=== PATIENT | female | born 1945 | race Caucasian/White ===

== ENCOUNTER 2016-12-19 20:11 | Emergency (ER) | payer OTHER, MEDICARE ==
[2016-12-19 20:41] VITALS: RESP 16
[2016-12-19] MEDS ORDERED: ACETAMINOPHEN 500 MG TAB ONE (21:13)
[2016-12-19] MEDS ORDERED: ACETAMINOPHEN 500 MG TAB PO ONE (21:14)
--- NOTE | 2016-12-19 21:14 | EDPHY ---
H & P Stated Complaint: fall R eye injury Time Seen by Provider: 12/19/16 21:10 HPI/ROS: HPI: 71-year-old female presents to emergency department with chief concern fall, right facial bruising. Had a mechanical fall when she was walking to the barn this evening and 1 of the horses moved a feeding been to a new location. She did not see it, tripped and fell into it impacting the right side of her face. No loss of consciousness. She reports a 6/10 right-sided headache, right facial tenderness. Reports blurry vision in the right eye. Denies dizziness, neck pain, shortness of breath, chest pain, back pain, weakness or numbness of extremities. No other injury at time of incident. Up-to-date with tetanus. Has a history of heart issues for which she sees Dr. Bruce Luna. Incidentally she reports fast heart rate periodically over the past several months. 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 ROS:10 point review of systems is negative other than as stated in HPI Source: Patient - Personal History Current Tetanus/Diphtheria Vaccine: Unsure Current Tetanus Diphtheria and Acellular Pertussis (TDAP): Unsure - Medical/Surgical History Hx Asthma: No Hx Chronic Respiratory Disease: No Hx Diabetes: No Hx Cardiac Disease: Yes Hx Renal Disease: No Hx Cirrhosis: No Hx Alcoholism: No Hx HIV/AIDS: No Hx Splenectomy or Spleen Trauma: No Other PMH: HTN, TIA, cardiac issue - Family History Significant Family History: No pertinent family hx - Social History Smoking Status: Never smoked Alcohol Use: None Drug Use: None Additional Social History: , lives with , cares for her horses on her property - Physical Exam Exam: Vital signs stable, reviewed by me General: Awake, calm, cooperative. No acute distress. Head: Normal a cephalic Face: Right maxillary ecchymosis, swelling, right facial abrasion EENT: PERRLA. EOMI. No papilledema. Right subconjunctival hemorrhage. No hyphema TMs intact, translucent. No evidence of bleeding or otorrhea. Nasal septum midline, nasal mucosa pink. no evidence of drainage. Uvula midline, pharynx without redness. Neck: No midline tenderness, full range of motion Resp: Breathing unlabored. Lungs clear to auscultation bilaterally. CV: HRR. S1S2. No MRG. GI: Abdomen soft, nontender. Bowel sounds normoactive and positive x4 quadrants. : No suprapubic tenderness. No CVA tenderness. Skin: Warm, dry. No rashes noted. Capillary refill less than 2 seconds. Musculoskeletal: Strength equal and 5+ in all 4 extremities. Neuro: No focal neuro deficit. CN II through XII intact. Rapid alternating hand movements intact. Finger to nose intact. Heel to borja intact. Negative Romberg. Negative pronator drift. Gait even and steady. Memory and recall of 3/3 objects at 5 minutes intact. Upper and lower extremity DTRs 2+. Back: No midline thoracic or lumbar tenderness Extremities: Full range of motion. Constitutional: Initial Vital Signs Temperature (C) 36.9 C 12/19/16 20:36 Heart Rate 81 12/19/16 20:36 Respiratory Rate 16 12/19/16 20:36 Blood Pressure 144/104 H 12/19/16 20:36 O2 Sat (%) 95 12/19/16 20:36 O2 Delivery Mode Room Air Allergies/Adverse Reactions: cephalexin monohydrate [From [employer]] Allergy (Verified 12/19/16 20:33) Home Medications: Medication Instructions Recorded Aspirin 81mg 12/24/09 Crestor 12/24/09 Plavix 12/24/09 Zetia 12/24/09 Medical Decision Making - Diagnostics Imaging: CT Brain Without Contrast CT of the Facial Bones 2125 hours History: Blunt trauma to right side of face with abrasions. Rule out intracranial hemorrhage and fracture.. Impression: 1. Moderate atrophy. 2. No hemorrhage, mass effect, or definite acute peripheral infarct. 3. Stable mild to moderate nonspecific hypodensities in the white matter of bilateral cerebral hemispheres. Differential diagnosis includes microvascular ischemic disease, post-infectious/post- inflammatory sequela, atypical demyelinating disease, or migraine-related sequela. Small white matter lacunar infarcts may also have this appearance. 4. Normal CT facial bones. These findings were discussed by telephone with Adelita Daly NP at 2154 hours. Dictated By: Julio C Jenkins MD Procedures: LET gel applied to right cheek abrasion. Abrasion then irrigated by RN. Bacitracin applied. ED Course/Re-evaluation: 71-year-old female on Plavix presents to emergency department with a fall, head injury. Landed on the right side of her face. Has a large right facial hematoma. Maxillofacial CT and head CT ordered. Patient has no focal neuro deficits. EKG shows a sinus rhythm, rate 71, normal intervals, no axis deviation, no evidence of acute ischemia. 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 Deep Q-waves in V2 and V3 Differential Diagnosis: Intracranial bleed, skull fracture, facial fracture, contusion, hematoma, eye injury - Data Points Medications Given: Discontinued Medications Acetaminophen (Tylenol) 1,000 mg PO EDNOW ONE Stop: 12/19/16 21:15 Last Admin: 12/19/16 21:26 Dose: 1,000 mg Departure - Departure Disposition: Home, Routine, Self-Care Clinical Impression: Hematoma, Abrasion, Subconjunctival hemorrhage of right eye Head injury Qualifiers: Encounter type: initial encounter Qualifier Code: (S09.90XA) Unspecified injury of head, initial encounter Facial contusion Qualifiers: Encounter type: initial encounter Qualifier Code: (S00.83XA) Contusion of other part of head, initial encounter Condition: Good Instructions: Head Injury (ED), Facial Contusion (ED), Hematoma (ED) Additional Instructions: Plan: 1000 mg Tylenol every 8 hours ice every 1-2 hours for 20 minutes for the the next 2-3 days Follow up with primary care within the next 1-2 days for recheck without fail-- When you call to schedule appointment, please let the office know you are an " ER follow up" appointment" Please awaken her every 2 hours during the night to check on her Return here for any of the follow Inability to awaken the patient, severe or worsening headaches, somnolence or confusion, restlessness, unsteadiness, or seizures, difficulty with vision, vomiting, fever, or stiff neck, bowel or bladder incontinence, weakness or numbness involving any part of the body. Gentle warm, soapy water to right facial abrasion daily, apply antibiotic ointment Referrals: Hima Begum MD [Primary Care Provider] - As per Instructions
--- NOTE | 2016-12-19 21:27 | CPEKG ---
Heart Rate: 71 RR Interval: 845 P-R Interval: 184 QRSD Interval: 82 QT Interval: 396 QTC Interval: 431 P [place]: 72 QRS [place]: 69 T Wave [place]: 15 EKG Severity - ABNORMAL ECG - EKG Impression: SINUS RHYTHM EKG Impression: ANTERIOR INFARCT, OLD Electronically Signed By: Mike Amaya 19-Dec-2016 23:30:08
--- NOTE | 2016-12-19 21:57 | CT ---
CT Brain Without Contrast CT of the Facial Bones 2125 hours History: Blunt trauma to right side of face with abrasions. Rule out intracranial hemorrhage and f racture.. Technique: Axial computed tomographic images of the brain without contrast. Images were reconstruct ed down to 1.25 mm slice thickness. Dose reduction techniques were utilized. Thin spiral images were obtained through the face from just below the mandible to above the frontal s inuses. The data were reconstructed in the sagittal and coronal plane. I also performed 3D reconstru ctions at the workstation to help the ER physician and surgeon visualize fractures if surgery is cont emplated. Dose reduction techniques were utilized. Comparison the prior MRI brain study from November 25, 2014. Findings: CT Head: Ventricles, cisterns, and sulci are widened consistent with moderate atrophy. No hydrocephal us, masses, midline shift/herniation, or subdural hematomas. No intraparenchymal hemorrhage or mass e ffect. Mild to moderate hypodensities are seen in the white matter of bilateral cerebral hemispheres. There is no acute peripheral cerebral infarct seen. Arteriosclerotic calcifications are noted asso ciated with distal ICA in the parasellar location bilaterally. CT facial bones: The facial bones are intact without evidence of fracture. The paranasal sinuses are clear. There are no air-fluid levels. The orbital globes are normal in contour. Soft tissue swelling is seen over the right orbit. Paranasal sinuses and mastoid air cells are clear. Impression: 1. Moderate atrophy. 2. No hemorrhage, mass effect, or definite acute peripheral infarct. 3. Stable mild to moderate nonspecific hypodensities in the white matter of bilateral cerebral hemisp heres. Differential diagnosis includes microvascular ischemic disease, post-infectious/post-inflammat ory sequela, atypical demyelinating disease, or migraine-related sequela. Small white matter lacunar infarcts may also have this appearance. 4. Normal CT facial bones. These findings were discussed by telephone with Adelita Daly NP at 2154 hours.
[2016-12-19] MEDS ORDERED: TDAP ADULT 0.5 ML INJ (BOOSTRIX) IM ONE (22:11)
[2016-12-19 22:24] VITALS: O2SAT 96
[2016-12-19 22:45] VITALS: BP 136/79; PULSE 78; TEMP 98.2
== END 2016-12-19 22:46 | disposition home or self-care (01) ==
DX: S09.90XA Unspecified injury of head, initial encounter (principal); S00.83XA Contusion of other part of head, initial encounter; S00.81XA Abrasion of other part of head, initial encounter; H11.31 Conjunctival hemorrhage, right eye; I10 Essential (primary) hypertension; W18.39XA Other fall on same level, initial encounter; Y92.71 Barn as the place of occurrence of the external cause; Y99.8 Other external cause status; Y93.01 Activity, walking, marching and hiking

== ENCOUNTER → 2016-12-27 | Outpatient (CLI) | payer OTHER, MEDICARE | LOC: BHCLAF 11:00 | PROVIDERS: ATTEND Internal Medicine Cardiovascular Disease | DX: R07.9 Chest pain, unspecified (principal); I25.10 Atherosclerotic heart disease of native coronary artery without angina pectoris; E78.00 Pure hypercholesterolemia, unspecified | CPT/HCPCS: 93005-PO ==

== ENCOUNTER → 2017-01-04 | Outpatient (CLI) | payer OTHER, MEDICARE | LOC: BHFA 13:15 | PROVIDERS: ATTEND Internal Medicine Cardiovascular Disease | DX: R07.9 Chest pain, unspecified (principal); I25.10 Atherosclerotic heart disease of native coronary artery without angina pectoris ==

== ENCOUNTER → 2017-03-22 | Outpatient (CLI) | payer OTHER, MEDICARE | LOC: FIMAGING 10:16 | DX: Z12.31 Encounter for screening mammogram for malignant neoplasm of breast (principal) | CPT/HCPCS: G0202 ==

== ENCOUNTER 2017-07-11 12:02 | Emergency (ER) | payer OTHER, MEDICARE ==
[2017-07-11 12:12] VITALS: TEMP 97.7
--- NOTE | 2017-07-11 12:16 | EDPHY ---
H & P Stated Complaint: difficulty grasping L arm at 1120 this am, nausea, palpitaions HPI/ROS: CHIEF COMPLAINT: Lightheaded, Chest pain, Weakness HISTORY OF PRESENT ILLNESS: The patient is a 72-year-old female with history of TIA presenting with acute weakness, chest pain, and lightheadedness that started suddenly at 11:30 a.m., 1 hour prior to arrival. The patient stood up after reading the paper and went to go up the stairs. She suddenly developed an off balance sensation. She was unable to grasp the hand rail and felt as though she lost mobility. The patient was able to make it to the top of the stairs and called her for help. The patient currently feels weak and fatigued. She has dizziness and nausea when she raises her head and when sitting up. She notes some chest pressure that occurred prior to the event and continues to have slight chest pressure here in the ED. She recently underwent a 30 day cardiac evaluation and was subsequently found to have a rapid heart rate intermittently. REVIEW OF SYSTEMS: A ten point review of systems was performed and is negative with the exception of the items mentioned in the HPI. Past medical history: TIA Past surgical history: Denies. Family history: Mother [place] age 69. Father [place] age 58. Social history: Nonsmoker. 1 glass of wine per day. , at bedside. General Appearance: Alert. Vital signs reviewed. Eyes: Pupils equal and round, no conjunctival injection, no discharge. Anicteric. ENT, Mouth: Mucous membranes are moist, no oropharyngeal erythema or edema. Neck: No lymphadenopathy, supple. Respiratory: Lungs are clear to auscultation; no wheezes, rales, or rhonchi. Cardiovascular: Regular rate and rhythm; no murmur, rub, or gallop. Gastrointestinal: Abdomen is soft and nontender, no masses or organomegaly, bowel sounds normal. Skin: Warm and dry, no rashes on exposed skin, normal color. Back: Nontender to palpation over the thoracolumbar spine. No CVAT. Extremities: No lower extremity edema, no calf tenderness or swelling. Neurological: Alert and oriented. Moving all four extremities easily and equally. Cranial nerves II through XII are examined and are intact (visual acuity not tested). Strength is 5 over 5 bilaterally with testing of all major motor groups. Sensation is intact to light touch over all 4 extremities. Deep tendon reflexes are 2+ in the biceps and knees bilaterally. [id number] worse on right than left. Psychiatric: Normal affect. Source: Patient - Personal History Current Tetanus/Diphtheria Vaccine: Unsure Current Tetanus Diphtheria and Acellular Pertussis (TDAP): Unsure - Medical/Surgical History Hx Asthma: No Hx Chronic Respiratory Disease: No Hx Diabetes: No Hx Cardiac Disease: Yes Hx Renal Disease: No Hx Cirrhosis: No Hx Alcoholism: No Hx HIV/AIDS: No Hx Splenectomy or Spleen Trauma: No Other PMH: HTN, TIA, cardiac issue - Social History Smoking Status: Never smoked Constitutional: Initial Vital Signs Temperature (C) 36.5 C 07/11/17 12:08 Heart Rate 74 07/11/17 12:08 Respiratory Rate 16 07/11/17 12:08 Blood Pressure 119/77 07/11/17 12:08 O2 Sat (%) 95 07/11/17 12:08 O2 Delivery Mode Room Air Allergies/Adverse Reactions: cephalexin monohydrate [From [employer]] Allergy (Verified 12/19/16 20:33) Home Medications: Medication Instructions Recorded Aspirin 81mg 12/24/09 Crestor 12/24/09 Plavix 12/24/09 Zetia 12/24/09 Meclizine HCl [Meclizine HCl 25 mg 25 mg PO TID PRN #10 tab 07/11/17 (RX,OTC)] Medical Decision Making - Diagnostics EKG Interpretation: 12 lead EKG is interpreted in Trace master View by emergency department physician. Imaging: Discussed imaging studies w/ core shaper sides Radiologist ED Course/Re-evaluation: I had the patient sit up. The movement caused the patient instant dizziness and an off balance sensation. Plan for CT head and lab work. The 12 lead EKG was interpreted by myself: Sinus rhythm. See hard copy and/or "tracemaster" electronic copy for interpretation. CT head shows no changes from November per report from the radiologist. 1:30 p.m.: I discussed findings with the patient. On reevaluation the patient is feeling better, but continues to feel tired. She was able to sit up with less difficulty this time. She continues to feel like she is on a boat when sitting up. I ordered 25mg Meclizine PO. I will reassess her after she takes the medication. 2:35 p.m.: Patient has a steady gait. She attributes her symptoms to increased stress and would like to go home. Patient has a negative laboratory workup with valuation of CBC, chemistries, troponin. All blood work was within normal limits with the exception of slight elevation of her blood sugar. She is safe to be discharged home. She is not currently experiencing chest discomfort. I do not think that this episode was a CVA or TIA, but she understands the TIA remains in the differential. It is my impression that she has vertigo, peripheral vertigo based upon its characteristics. I have not found evidence of infection. I do not think that she has had a cardiac event or that this is an acute coronary syndrome. Her head CT is negative for any acute changes. We reviewed the danger signs that should prompt her to return. - Data Points Laboratory Results: Laboratory Results 07/11/17 12:24 07/11/17 12:24 Medications Given: Discontinued Medications Meclizine HCl (Meclizine Hcl) 25 mg PO EDNOW ONE Stop: 07/11/17 13:29 Last Admin: 07/11/17 13:35 Dose: 25 mg Departure - Departure Disposition: Home, Routine, Self-Care Clinical Impression: Vertigo Condition: Good Instructions: Vertigo (ED) Additional Instructions: Take Meclizine as directed for recurrent symptoms. Followup with your primary care physician this week. Return to the Emergency Department with chest pain, shortness of breath, numbness or weakness in your extremities, difficulty with speech or word finding. Referrals: Hima Begum MD [Primary Care Provider] - As per Instructions Prescriptions: Meclizine HCl [Meclizine HCl 25 mg (RX,OTC)] 25 mg PO TID PRN #10 tab PRN Reason: vertigo Report Scribed for: Tania Mccain Report Scribed by: Nevin Lockwood Date of Report: 07/11/17 Time of Report: 12:25 Physician Review and Approval Statement: 07/11/17 12:26 Portions of this note were transcribed by the medical malpractice paralegal. I, Dr. Tania Mccain, personally performed the history, physical exam, and medical decision- making; and confirmed the accuracy of the information in the transcribed note.
--- NOTE | 2017-07-11 12:23 | CPEKG ---
Heart Rate: 65 RR Interval: 923 P-R Interval: 176 QRSD Interval: 92 QT Interval: 428 QTC Interval: 445 P [place]: 55 QRS [place]: 70 T Wave [place]: 26 EKG Severity - OTHERWISE NORMAL ECG - EKG Impression: SINUS RHYTHM EKG Impression: LOW VOLTAGE IN FRONTAL LEADS Electronically Signed By: Tania Mccain 11-Jul-2017 15:57:38
[2017-07-11 12:39] LABS: % IMMATURE GRANULYOCYTES 0.3 % (0.0-1.1); ABSOLUTE IMMATURE GRANULOCYTES 0.02 10^3/uL (0.00-0.10); ADD DIFF? NO; ADD MORPH? NO; ADD SCAN? NO; ATYPICAL LYMPHOCYTE FLAG 0 (0-99); FRAGMENT RBC FLAG 0 (0-99); HEMATOCRIT 43.3 % (38.0-47.0); HEMOGLOBIN 14.4 g/dL (12.6-16.3); LEFT SHIFT FLG 0 (0-99); LIPEMIA HEMOLYSIS FLAG 80 (0-99); MEAN CELL HEMOGLOBIN 33.1 pg (27.9-34.1); MEAN CELL HEMOGLOBIN CONCENTR. 33.3 g/dL (32.4-36.7); MEAN CELL VOLUME 99.5 fL (81.5-99.8); MEAN PLATELET VOLUME 9.7 fL (8.7-11.7); PLATELET CLUMPS FLAG 0 (0-99); PLATELET COUNT 246 10^3/uL (150-400); RED BLOOD CELL COUNT 4.35 10^6/uL (4.18-5.33); RED CELL DISTRIBUTION WIDTH 12.7 % (11.5-15.2)
[2017-07-11 12:53] LABS: ANION GAP 12 mEq/L (8-16); CALCIUM 9.1 mg/dL (8.5-10.4); CARBON DIOXIDE 22 mEq/l (22-31); CHLORIDE 107 mEq/L (97-110); CREATININE 0.8 mg/dL (0.6-1.0); GLOMERULAR FILTRATION RATE > 60; GLUCOSE 109 mg/dL (70-100); POTASSIUM 4.2 mEq/L (3.5-5.2); SODIUM 141 mEq/L (134-144)
[2017-07-11 13:04] LABS: TROPONIN I < 0.012 ng/mL (0.000-0.034)
[2017-07-11] MEDS ORDERED: MECLIZINE HCL 25 MG TAB PO ONE (13:28)
--- NOTE | 2017-07-11 14:13 | CPEKG ---
Heart Rate: 64 RR Interval: 938 P-R Interval: 176 QRSD Interval: 86 QT Interval: 424 QTC Interval: 438 P [place]: 62 QRS [place]: 70 T Wave [place]: 30 EKG Severity - OTHERWISE NORMAL ECG - EKG Impression: SINUS ARRHYTHMIA, RATE 49-73 EKG Impression: LOW VOLTAGE IN FRONTAL LEADS Electronically Signed By: Rodney Williamson 17-Jul-2017 07:40:59
[2017-07-11 15:15] VITALS: BP 123/62; PULSE 65; RESP 16; O2SAT 96
== END 2017-07-11 15:19 | disposition home or self-care (01) ==
DX: R42 Dizziness and giddiness (principal); I10 Essential (primary) hypertension; Z79.01 Long term (current) use of anticoagulants; Z79.82 Long term (current) use of aspirin

== ENCOUNTER → 2018-01-24 | Outpatient (CLI) | payer OTHER, MEDICARE | LOC: BHFA 09:30 | PROVIDERS: ATTEND Internal Medicine Cardiovascular Disease | DX: R00.2 Palpitations (principal); I48.91 Unspecified atrial fibrillation; R07.9 Chest pain, unspecified ==

== ENCOUNTER → 2018-01-29 | Outpatient (CLI) | payer OTHER, MEDICARE | LOC: BHFA 14:00 | PROVIDERS: ATTEND Internal Medicine Interventional Cardiology | DX: I48.91 Unspecified atrial fibrillation (principal) | CPT/HCPCS: 78452; 93017; A9500 ==

== ENCOUNTER → 2018-02-08 | Outpatient (CLI) | payer OTHER, MEDICARE | LOC: BHFA 10:00 | PROVIDERS: ATTEND Internal Medicine Cardiovascular Disease | DX: I48.91 Unspecified atrial fibrillation (principal) ==

== ENCOUNTER 2018-02-21 09:05 | Day surgery (SDC) | payer OTHER, MEDICARE ==
[2018-02-21] MEDS ORDERED: ASPIRIN EC 325 MG TAB PO ONE (09:08)
[2018-02-21] MEDS ORDERED: diphenhydrAMINE 25 MG CAP PO ONE (09:08)
[2018-02-21] MEDS ORDERED: DIAZEPAM 5 MG TAB PO ONE (09:08)
[2018-02-21] MEDS ORDERED: NS 1,000 ML IV ONE (09:08)
[2018-02-21] MEDS ORDERED: FAMOTIDINE 20 MG TAB PO ONE (09:08)
--- NOTE | 2018-02-21 09:38 | CPEKG ---
Heart Rate: 67 RR Interval: 896 P-R Interval: 188 QRSD Interval: 90 QT Interval: 416 QTC Interval: [address] [place]: 78 QRS [place]: [address] [place]: 32 EKG Severity - OTHERWISE NORMAL ECG - EKG Impression: SINUS RHYTHM EKG Impression: BORDERLINE RIGHT AXIS DEVIATION Electronically Signed By: Benji Harden 21-Feb-2018 11:27:40
[2018-02-21 09:55] LABS: PLATELET COUNT 225 10^3/uL (150-400)
[2018-02-21 10:06] LABS: INR 0.95 (0.83-1.16); PROTIME(PATIENT) 12.9 SEC (12.0-15.0)
[2018-02-21] MEDS ORDERED: LIDOCAINE 1% 300 MG/30 ML SDV ONE ×2 (10:32→11:54)
--- NOTE | 2018-02-21 11:39 | PDHPUP ---
History & Physical Update H&P update statement: This history and physical update is based on an assessment of the patient which was completed after admission or registration (within 24 hours), but prior to the surgery/procedure. H&P update: H&P reviewed & patient examined, no change in patient's condition since H&P completed
--- NOTE | 2018-02-21 11:39 | PDPROPOC ---
Sedation Plan of Care Sedation Plan of Care: vital signs stable, mental status noted, patient educated of risks, benefits, alternatives, patient can tolerate sedation ASA Classification: ASA 1 Planned drugs: fentanyl, midazolam Mallampati Score: Class 1 Mallampati Reference Image: Patient passed 3-3-2 rule?: Yes
[2018-02-21] MEDS ORDERED: HEPARIN 10,000 UNIT/10 ML MDV (1,000 UNIT/ML) ONE (11:55)
[2018-02-21] MEDS ORDERED: IOPAMIDOL (ISOVUE-370) 150 ML BTL IV ONE (11:55)
[2018-02-21] MEDS ORDERED: fentaNYL 100 MCG/2 ML INJ ONE (11:55)
[2018-02-21] MEDS ORDERED: MIDAZOLAM 2 MG/2 ML VIAL ONE (11:55)
[2018-02-21] MEDS ORDERED: VERAPAMIL 5 MG/2 ML VIAL ONE (11:55)
[2018-02-21] MEDS ORDERED: HYDROCODONE/APAP 5/325 TAB PO PRN (12:59)
[2018-02-21] MEDS ORDERED: NITROGLYCERIN 0.4 MG BTL SL PRN (12:59)
[2018-02-21] MEDS ORDERED: ONDANSETRON 4 MG/2 ML VIAL IVP PRN (12:59)
[2018-02-21] MEDS ORDERED: ATROPINE SULFATE 1 MG/10 ML SYR IVP PRN (12:59)
--- NOTE | 2018-02-21 13:08 | PDDXCAT ---
Diagnostic Cath Note - . Date: 02/21/18 Medical File Clerk: Leandro Indication: other (Chest pain, family history of CAD, and nuclear stress test positive for chest pain and ECg abnormalities but with normal perfusion images.) - Procedure Access: right wrist - Materials Left Heart Cath size: 5F Left Heart Cath materials: other (Fazal and pigtail) - Findings-Left Heart Catheterization LM: Normal. LAD: Minimal atherosclerotic irregularities. LCX: Minimal atherosclerotic irregularities. RCA: Minimal atherosclerotic irregularities. LVEF: 65-70% Estimated blood loss: <50ml Closure method: TR Band Assessment: 1) Normal LV systolc function. 2) Minimal coronary atherosclerotic irregularities.
== END 2018-02-21 17:33 | disposition home or self-care (01) ==
LOC: FCATH 09:05
PROVIDERS: ATTEND Internal Medicine Interventional Cardiology
PROC: B2151ZZ Fluoroscopy of Left Heart using Low Osmolar Contrast (ICD-10-PCS; principal; 2018-02-21)
PROC: B2111ZZ Fluoroscopy of Multiple Coronary Arteries using Low Osmolar Contrast (ICD-10-PCS; principal; 2018-02-21)
PROC: 4A023N7 Measurement of Cardiac Sampling and Pressure, Left Heart, Percutaneous Approach (ICD-10-PCS; principal; 2018-02-21)
DX: R07.89 Other chest pain (principal); R94.31 Abnormal electrocardiogram [ECG] [EKG]; R00.2 Palpitations; Z82.49 Family history of ischemic heart disease and other diseases of the circulatory system
CPT/HCPCS: 93005; 93458; C1769; J1644; J2250; J3010; Q9967

== ENCOUNTER → 2018-04-04 | Outpatient (CLI) | payer OTHER, MEDICARE | LOC: FIMAGING 09:53 | PROVIDERS: ATTEND Internal Medicine | DX: R92.8 Other abnormal and inconclusive findings on diagnostic imaging of breast (principal); N64.4 Mastodynia ==

== ENCOUNTER 2018-08-12 15:42 | Inpatient (IN) | payer OTHER, MEDICARE ==
--- NOTE | 2018-08-12 15:48 | EDPHY ---
H & P Stated Complaint: Tachycardia, vomiting Time Seen by Provider: 08/12/18 15:48 HPI/ROS: CHIEF COMPLAINT: Tachycardia, vomiting HISTORY OF PRESENT ILLNESS: The patient has a event monitor. Today she developed tachycardia and vomiting. She had the event monitor interrogated and reportedly was told to come to the emergency department for further evaluation. The patient denies prior history of coronary artery disease. The patient did undergo an angiogram in February of this year which demonstrated only minor irregularities. The patient reportedly felt fine when she woke up today and developed vomiting and tachycardia approximately 2 hr ago. The patient currently denies any chest pain or shortness of breath. She complains of some minimal epigastric discomfort. The patient does have a history of TIA and is on Plavix. She denies any history of melena or hematemesis. REVIEW OF SYSTEMS: A comprehensive 10 point review of systems is otherwise negative aside from elements mentioned in the history of present illness. Source: Patient Exam Limitations: No limitations - Personal History Current Tetanus Diphtheria and Acellular Pertussis (TDAP): Unsure - Medical/Surgical History Hx Asthma: No Hx Chronic Respiratory Disease: No Hx Diabetes: No Hx Cardiac Disease: Yes Hx Renal Disease: No Hx Cirrhosis: No Hx Alcoholism: No Hx HIV/AIDS: No Hx Splenectomy or Spleen Trauma: No Other PMH: HTN, TIA, arrhythmia - Social History Smoking Status: Never smoked - Physical Exam Exam: General Appearance: Alert, no distress Eyes: Pupils equal and round no pallor or injection ENT, Mouth: Mucous membranes moist Respiratory: There are no retractions, lungs are clear to auscultation Cardiovascular: Regular rate and rhythm Gastrointestinal: Minimal epigastric tenderness to palpation, no peritoneal signs Neurological: 5/5 strength all 4 extremities Skin: Warm and dry, no rashes Musculoskeletal: Neck is supple nontender Extremities: symmetrical, full range of motion Psychiatric: Patient is oriented X 3, there is no agitation Constitutional: Initial Vital Signs Temperature (C) 36.3 C 08/12/18 15:43 Heart Rate 62 08/12/18 15:43 Respiratory Rate 18 08/12/18 15:43 Blood Pressure 130/79 H 08/12/18 15:43 O2 Sat (%) 93 08/12/18 15:43 O2 Delivery Mode Room Air Allergies/Adverse Reactions: cephalexin monohydrate [From Keflex] Allergy (Verified 08/12/18 15:42) Home Medications: Medication Instructions Recorded Aspirin [Aspirin 81mg (*)] 81 mg PO HS 12/24/09 Clopidogrel Bisulfate [Plavix (*)] 75 mg PO HS 12/24/09 Ezetimibe [Zetia 10 MG (*)] 10 mg PO HS 12/24/09 Rosuvastatin Calcium [Crestor] 10 mg PO HS 12/24/09 Acetaminophen [Tylenol 325mg (*)] 650 mg PO Q6 PRN 02/16/18 Omeprazole 20 mg PO HS 02/16/18 Metoprolol Tartrate [Lopressor 25 25 mg PO HS #0 02/21/18 mg (*)] Multivitamins [Multivitamin (*)] 1 each PO DAILY 08/12/18 Medical Decision Making - Diagnostics EKG Interpretation: EKG: Complete interpretation has been separately recorded in the [employer] archive. Summary impression: Sinus rhythm, rate 62, nonspecific T-wave inversion noted in the inferior lead III. ED Course/Re-evaluation: I spoke with Dr. Russ Whitman who told me the patient's device had reported a 20 sec pause earlier today. The patient did have a transient episode of bradycardia with associated nausea in the ED. She did not developed hypotension. The patient was treated with 4 mg of IV Zofran. The patient's initial troponin is normal. Her EKG demonstrates no evidence of ischemia. The patient will be admitted to the hospital for observation this evening. Consultation with Cardiology and Internal Medicine has been requested. The patient will be admitted by Dr. Harshad Francisco. Differential Diagnosis: Differential diagnosis considered includes heart block, sinus bradycardia, vasovagal episode, myocardial infarction, dehydration, metabolic derangement - Data Points Laboratory Results: Laboratory Results 08/12/18 15:55 08/12/18 08/12/18 08/12/18 15:59 15:57 15:55 WBC RBC Hgb POC Hgb 14.6 gm/dL gm/dL (12.6-16.3) Hct POC Hct 43 % % (38-47) MCV MCH MCHC RDW Plt Count MPV Neut % (Auto) Lymph % (Auto) Bath % (Auto) Eos % (Auto) Baso % (Auto) Nucleat RBC Rel Count Absolute Neuts (auto) Absolute Lymphs (auto) Absolute Monos (auto) Absolute Eos (auto) Absolute Basos (auto) Absolute Nucleated RBC Immature Gran % Immature Gran # PT INR APTT POC Sodium 142 mEq/L mEq/L (135-145) POC Potassium 3.0 mEq/L L mEq/L (3.3-5.0) POC Chloride 105 mEq/L mEq/L (97-110) POC BUN 22 mg/dL mg/dL (7-23) POC Creatinine 0.7 mg/dL mg/dL (0.6-1.0) POC Glucose 134 mg/dL H mg/dL (70-100) Total Bilirubin Conjugated Bilirubin Unconjugated Bilirubin AST ALT Alkaline Phosphatase POC Troponin I 0.00 ng/mL ng/mL (0.00-0.08) Troponin I < 0.012 ng/mL ng/mL (0.000-0.034) Total Protein Albumin Lipase TSH 3.840 uIU/mL uIU/mL (0.465-4.680) 08/12/18 08/12/18 08/12/18 15:55 15:55 15:55 WBC 7.80 10^3/uL 10^3/uL (3.80-9.50) RBC 4.31 10^6/uL 10^6/uL (4.18-5.33) Hgb 14.1 g/dL g/dL (12.6-16.3) POC Hgb Hct 42.2 % % (38.0-47.0) POC Hct MCV 97.9 fL fL (81.5-99.8) MCH 32.7 pg pg (27.9-34.1) MCHC 33.4 g/dL g/dL (32.4-36.7) RDW 12.2 % % (11.5-15.2) Plt Count 263 10^3/uL 10^3/uL (150-400) MPV 9.9 fL fL (8.7-11.7) Neut % (Auto) 56.1 % % (39.3-74.2) Lymph % (Auto) 36.0 % % (15.0-45.0) Bath % (Auto) 6.8 % % (4.5-13.0) Eos % (Auto) 0.3 % L % (0.6-7.6) Baso % (Auto) 0.4 % % (0.3-1.7) Nucleat RBC Rel Count 0.0 % % (0.0-0.2) Absolute Neuts (auto) 4.38 10^3/uL 10^3/uL (1.70-6.50) Absolute Lymphs (auto) 2.81 10^3/uL 10^3/uL (1.00-3.00) Absolute Monos (auto) 0.53 10^3/uL 10^3/uL (0.30-0.80) Absolute Eos (auto) 0.02 10^3/uL L 10^3/uL (0.03-0.40) Absolute Basos (auto) 0.03 10^3/uL 10^3/uL (0.02-0.10) Absolute Nucleated RBC 0.00 10^3/uL 10^3/uL (0-0.01) Immature Gran % 0.4 % % (0.0-1.1) Immature Gran # 0.03 10^3/uL 10^3/uL (0.00-0.10) PT 13.2 SEC SEC (12.0-15.0) INR 0.98 (0.83-1.16) APTT 22.6 SEC L SEC (23.0-38.0) POC Sodium POC Potassium POC Chloride POC BUN POC Creatinine POC Glucose Total Bilirubin 0.5 mg/dL mg/dL (0.1-1.4) Conjugated Bilirubin 0.2 mg/dL mg/dL (0.0-0.5) Unconjugated Bilirubin 0.3 mg/dL mg/dL (0.0-1.1) AST 29 IU/L IU/L (14-46) ALT 36 IU/L IU/L (9-52) Alkaline Phosphatase 54 IU/L IU/L (38-126) POC Troponin I Troponin I Total Protein 6.2 g/dL L g/dL (6.3-8.2) Albumin 4.0 g/dL g/dL (3.5-5.0) Lipase 67 IU/L IU/L (23-300) TSH Medications Given: Discontinued Medications Ondansetron HCl (Zofran) 4 mg IVP EDNOW ONE Stop: 08/12/18 16:17 Last Admin: 08/12/18 16:17 Dose: 4 mg Point of Care Test Results: Chemistry 08/12/18 08/12/18 15:59 15:57 POC Sodium 142 mEq/L mEq/L (135-145) POC Potassium 3.0 mEq/L L mEq/L (3.3-5.0) POC Chloride 105 mEq/L mEq/L (97-110) POC BUN 22 mg/dL mg/dL (7-23) POC Creatinine 0.7 mg/dL mg/dL (0.6-1.0) POC Glucose 134 mg/dL H mg/dL (70-100) POC Troponin I 0.00 ng/mL ng/mL (0.00-0.08) ISTAT H&H 08/12/18 15:57 POC Hgb 14.6 gm/dL gm/dL (12.6-16.3) POC Hct 43 % % (38-47) Departure - Departure Disposition: [facility] Inpatient Acute Clinical Impression: Bradycardia Condition: Good
--- NOTE | 2018-08-12 16:00 | CPEKG ---
Test Reason : OPEN Blood Pressure : / mmHG Vent. Rate : 062 BPM Atrial Rate : 061 BPM P-R Int : 165 ms QRS Dur : 101 ms QT Int : 436 ms P-R-T Axes : 000 076 -13 degrees QTc Int : 443 ms Sinus rhythm Confirmed by Rashi Aguirre ([id number]) on 08/12/2018 4:00:11 PM Referred By: Confirmed By:Rashi Aguirre
[2018-08-12 16:11] LABS: PLATELET COUNT 263 10^3/uL (150-400)
[2018-08-12] MEDS ORDERED: ONDANSETRON 4 MG/2 ML VIAL IVP ONE (16:16)
[2018-08-12] MEDS ORDERED: ONDANSETRON DISINTEGRATING 4 MG TAB PO PRN (17:06)
[2018-08-12] MEDS ORDERED: ACETAMINOPHEN 325 MG TAB PO PRN (17:06)
[2018-08-12] MEDS ORDERED: ONDANSETRON 4 MG/2 ML VIAL IVP PRN (17:06)
[2018-08-12 17:21] LABS: INR 0.98 (0.83-1.16); PROTIME(PATIENT) 13.2 SEC (12.0-15.0)
[2018-08-12] MEDS ORDERED: MAGNESIUM SULF 1 GM/DEXTROSE 100 ML IV ONE (17:22)
[2018-08-12] MEDS ORDERED: POTASSIUM Cl (KCl) 40 MEQ in NS 1,000 ML IV SCH (17:30)
--- NOTE | 2018-08-12 19:03 | GCON ---
DATE OF CONSULTATION: 08/12/2018 INDICATION FOR CONSULTATION: Reported 20-second pause on [employer] long-term monitoring analyst. HISTORY OF PRESENT ILLNESS: The patient is a pleasant 73-year-old female with a known history of non obstructive coronary artery disease noted on left heart catheterization in February 2018, history of rig ht hemispheric CVA, sleep apnea, hyperlipidemia, insomnia, and macrocytosis, who recently saw her [facility] counterintelligence/humint specialist, Dr. Zambrano, with complaints of intermittent palpitations. A 30-day [employer] heart monitor was placed in the setting of complaints of palpitations. The patie nt denies any history of syncope or near-syncope. She states she was in her usual state of health. She reports last evening she and her went t o [employer] and shared a salad with chicken. She states that she and her both woke up this morning feeling nauseated. She reports that she felt like she was developing flu-like symptoms. She states her 's nausea gradually improved throughout the course of the day and hers intensified . She had an episode of vomiting this afternoon. She states this was nothing out of the ordinary. She states that after vomiting that she felt better. She states she did experience some of her typic al chest discomfort that she has been experiencing for several years. She denies any associated near -syncope or syncope. She denies any associated lightheadedness, dizziness, or neurologic symptoms. She states that shortly after vomiting, she received a phone call from [employer] monitoring marcela g that she had a 20-second pause on her monitor, prompting her to seek medical attention. She arrived, via her driving her, to [facility] for further evaluation. She is currently in sinus rhythm in the 60s on telemetry, with no with no pauses identified. She continu es to feel somewhat nauseated. She has no other complaints at this time. REVIEW OF SYSTEMS: A 10-point review of systems is negative for shortness of breath, dyspnea, PND, o rthopnea, palpitations, dizziness, lightheadedness, near syncope, or syncope. Negative for lower ext remity edema. She has been compliant with medications. The remainder of the 10-point review of syst ems is negative with the exception of those described in the HPI. PAST MEDICAL HISTORY: Nonobstructive coronary artery disease and a left heart catheterization in Feb. Obstructive sleep apnea, compliant with CPAP. History of TIA and right hemispheric CVA. H yperlipidemia. Insomnia. Macrocytosis. MEDICATIONS ON ADMISSION: Include multivitamin daily, Crestor 10 mg daily, omeprazole 20 mg daily, m etoprolol tartrate 25 mg at h.s., Zetia 10 mg daily, Plavix 75 mg daily, aspirin 81 mg daily, and Tyl enol 650 mg p.o. q.6 hours p.r.n. ALLERGIES: To medications include Keflex. SOCIAL HISTORY: She is . She lives with her . She is a lifelong nonsmoker. She rare ly drinks alcohol. FAMILY HISTORY: The patient's father at the age of 55, and the patient's mother at the age of 65 from coronary artery disease. PHYSICAL EXAMINATION: VITAL SIGNS: Blood pressure is currently 91/64, heart rate of 67, oxygen satu ration 97% on room air. The slowest recorded heart rate since her presentation was 41 during an epis ode of nausea at 1636. NECK: There is no evidence of JVP or carotid bruits. LUNGS: Clear to auscu ltation bilaterally. CARDIAC: S1, S2. Regular rate and rhythm. No murmurs, rubs, or gallops. PMI is not displaced. ABDOMEN: Soft, nontender, AND nondistended. There is no pulsatile mass or abdom inal bruit. She has no evidence of cyanosis, clubbing, or edema. DATA: White blood cell count 7.8, hemoglobin 14.1, hematocrit 42.2, platelet count 263. Sodium 142, potassium 3.0, chloride 105, BUN 22, creatinine 0.7. Troponin less than 0.012. TSH 3.84. Lipase 6 7. EKG demonstrates normal sinus rhythm at 62 beats per minute with normal intervals and normal axis. Q Tc corrected of 443 msec, normal axis, and normal intervals. IMPRESSION: 1. Nausea and vomiting, which I think is due to possible food poisoning from dinner last night since her also felt poorly this morning. 2. Pause. I have reviewed the tracings from the [facility] monitoring. The pause appears to be 7 s econds long. PLAN: 1. We will admit to -[facility] telemetry. 2. We will place pacer appliance. 3. We will check serum magnesium. In summary, I think that this is most likely triggered by nausea and vomiting and enhanced vagal tone . If she has no further events, would not recommend pacer implant at this point. We will continue t o follow along with her care. /[id number]/MODL
--- NOTE | 2018-08-12 19:26 | PDGENHP ---
History and Physical - Chief Complaint Acute vomiting - History of Present Illness Primary care provider: Dr. Nicci Morataya Primary finance administrator: Dr. Rahat Zambrano HPI: 73-year-old female presenting with acute vomiting characterized as brown, nonbloody emesis with associated generalized weakness and onset of symptoms approximately 2 hr prior to presentation. The vomiting is was witnessed by the patient's and he is able to corroborate that the patient did not in fact pass out. She reports that after her symptoms, she experienced some associated fatigue and mild chest discomfort and she was contacted by her heart monitor veterans employment representative who told her to go to the emergency department and that she had had a 20 sec pause. After presenting to the emergency department, she had some visible sinus bradycardia in the 40s with recurrence of nausea. The symptoms have occurred in the context of having an unsavory meal on the evening prior to presentation which resulted in abdominal discomfort and abdominal bloating. She and her both experienced similar symptoms after eating from the same restaurant. On the morning of presentation, the patient ate a light breakfast, went to [employer], and then experienced the aforementioned symptoms. The patient has a diazo technician in place because of palpitations described by her to her finance administrator. History Information - Allergies/Home Medication List Allergies/Adverse Reactions: cephalexin monohydrate [From Keflex] Allergy (Verified 08/12/18 15:42) Home Medications: Aspirin [Aspirin 81mg (*)] 81 mg PO HS 12/24/09 [Last Taken 08/11/18] Clopidogrel Bisulfate [Plavix (*)] 75 mg PO HS 12/24/09 [Last Taken 08/11/18] Ezetimibe [Zetia 10 MG (*)] 10 mg PO HS 12/24/09 [Last Taken 08/11/18] Rosuvastatin Calcium [Crestor] 10 mg PO HS 12/24/09 [Last Taken 08/11/18] Acetaminophen [Tylenol 325mg (*)] 650 mg PO Q6 PRN 02/16/18 [Last Taken Unknown] Omeprazole 20 mg PO HS 02/16/18 [Last Taken 08/11/18] Metoprolol Tartrate [Lopressor 25 mg (*)] 25 mg PO HS #0 02/21/18 [Last Taken ] Multivitamins [Multivitamin (*)] 1 each PO DAILY 08/12/18 [Last Taken Unknown] I have personally reviewed and updated: family history, medical history, social history, surgical history - Past Medical History Additional medical history: TIA and right hemispheric CVA. Obstructive sleep apnea with CPAP. Hyperlipidemia. Insomnia - Surgical History Additional surgical history: Catheterization February of 2018 - Family History Additional family history: Father and mother both with coronary disease, father at 55, mother at 65 - Social History Smoking Status: Never smoked Alcohol Use: Rarely Drug Use: None Additional social history: Independent in her ADLs Review of Systems Review of Systems: ROS: 10pt was reviewed & negative except for what was stated in HPI & below Constitutional: Reports: weakness Gastrointestinal: Reports: vomitting, abdominal pain, nausea Physical Exam Physical Exam: Temp Pulse Resp BP Pulse Ox 36.6 C 58 L 18 118/79 90 L 08/12/18 19:03 08/12/18 19:03 08/12/18 19:03 08/12/18 19:03 08/12/18 19:03 Constitutional: no apparent distress, appears nourished, not in pain Eyes: PERRL, anicteric sclera, EOMI Ears, Nose, Mouth, Throat: moist mucous membranes, hearing normal, ears appear normal, no oral mucosal ulcers Cardiovascular: bradycardia, No systolic murmur, No irregularly irregular, No tachycardia, No edema Respiratory: no respiratory distress, no rales or rhonchi, clear to auscultation Gastrointestinal: normoactive bowel sounds, soft, non-tender abdomen, No guarding, No distension Genitourinary: no bladder fullness, no bladder tenderness Neurologic: AAOx3, No weakness, No facial droop Psychiatric: interacting appropriately, not anxious, not encephalopathic, thought process linear Lab Data & Imaging Review 08/12/18 15:55 WBC 7.80 10^3/uL (3.80-9.50) 08/12/18 15:55 RBC 4.31 10^6/uL (4.18-5.33) 08/12/18 15:55 Hgb 14.1 g/dL (12.6-16.3) 08/12/18 15:55 POC Hgb 14.6 gm/dL (12.6-16.3) 08/12/18 15:57 Hct 42.2 % (38.0-47.0) 08/12/18 15:55 POC Hct 43 % (38-47) 08/12/18 15:57 MCV 97.9 fL (81.5-99.8) 08/12/18 15:55 MCH 32.7 pg (27.9-34.1) 08/12/18 15:55 MCHC 33.4 g/dL (32.4-36.7) 08/12/18 15:55 RDW 12.2 % (11.5-15.2) 08/12/18 15:55 Plt Count 263 10^3/uL (150-400) 08/12/18 15:55 MPV 9.9 fL (8.7-11.7) 08/12/18 15:55 Neut % (Auto) 56.1 % (39.3-74.2) 08/12/18 15:55 Lymph % (Auto) 36.0 % (15.0-45.0) 08/12/18 15:55 [place] % (Auto) 6.8 % (4.5-13.0) 08/12/18 15:55 Eos % (Auto) 0.3 % (0.6-7.6) L 08/12/18 15:55 Baso % (Auto) 0.4 % (0.3-1.7) 08/12/18 15:55 Nucleat RBC Rel Count 0.0 % (0.0-0.2) 08/12/18 15:55 Absolute Neuts (auto) 4.38 10^3/uL (1.70-6.50) 08/12/18 15:55 Absolute Lymphs (auto) 2.81 10^3/uL (1.00-3.00) 08/12/18 15:55 Absolute Monos (auto) 0.53 10^3/uL (0.30-0.80) 08/12/18 15:55 Absolute Eos (auto) 0.02 10^3/uL (0.03-0.40) L 08/12/18 15:55 Absolute Basos (auto) 0.03 10^3/uL (0.02-0.10) 08/12/18 15:55 Absolute Nucleated RBC 0.00 10^3/uL (0-0.01) 08/12/18 15:55 Immature Gran % 0.4 % (0.0-1.1) 08/12/18 15:55 Immature Gran # 0.03 10^3/uL (0.00-0.10) 08/12/18 15:55 PT 13.2 SEC (12.0-15.0) 08/12/18 15:55 INR 0.98 (0.83-1.16) 08/12/18 15:55 APTT 22.6 SEC (23.0-38.0) L 08/12/18 15:55 POC Sodium 142 mEq/L (135-145) 08/12/18 15:57 POC Potassium 3.0 mEq/L (3.3-5.0) L 08/12/18 15:57 POC Chloride 105 mEq/L (97-110) 08/12/18 15:57 POC BUN 22 mg/dL (7-23) 08/12/18 15:57 POC Creatinine 0.7 mg/dL (0.6-1.0) 08/12/18 15:57 POC Glucose 134 mg/dL (70-100) H 08/12/18 15:57 Total Bilirubin 0.5 mg/dL (0.1-1.4) 08/12/18 15:55 Conjugated Bilirubin 0.2 mg/dL (0.0-0.5) 08/12/18 15:55 Unconjugated Bilirubin 0.3 mg/dL (0.0-1.1) 08/12/18 15:55 AST 29 IU/L (14-46) 08/12/18 15:55 ALT 36 IU/L (9-52) 08/12/18 15:55 Alkaline Phosphatase 54 IU/L (38-126) 08/12/18 15:55 POC Troponin I 0.00 ng/mL (0.00-0.08) 08/12/18 15:59 Troponin I < 0.012 ng/mL (0.000-0.034) 08/12/18 15:55 Total Protein 6.2 g/dL (6.3-8.2) L 08/12/18 15:55 Albumin 4.0 g/dL (3.5-5.0) 08/12/18 15:55 Lipase 67 IU/L (23-300) 08/12/18 15:55 TSH 3.840 uIU/mL (0.465-4.680) 08/12/18 15:55 Visualized and Interpreted EKG results: Yes EKG Interpretation: Positive for: other (Sinus bradycardia with T-wave inversion in lead 3, telemetry with sinus bradycardia) Assessment & Plan Assessment: 73-year-old female presenting with nausea vomiting and generalized weakness in the setting of sinus bradycardia and reported sinus pauses Plan: 1. Possible sinus pause. Acute, new problem this provider, further workup indicated. The surgeon that the patient had a full 20 sec pause is questionable , given that she did not experience any syncope, and 20 sec pause would most certainly cause profound symptoms of cerebrovascular hypoperfusion -I have discussed with Dr. Russ Whitman, we have agreed that it should be safe to place the patient on pacer pads this evening, monitor her on telemetry, and obtain the rhythm strip from her device company as soon as possible -reviewed outside records including 02/21/[address] Russ Reeves, reports minimal coronary disease with a preserved ejection fraction of 65-70% -if the patient did in fact experience a significant sinus pause which would require permanent pacemaker placement, the patient has been NPO in a.m. For preparation -I have also held her aspirin and Plavix in preparation, last dosage 08/11 HS 2. Hypokalemia. Placed on normal saline with supplemental potassium and 1 dose of IV magnesium 3. Obstructive sleep apnea. CPAP Diet. Regular, NPO after midnight Prophylaxis. Moderate risk patient, SCDs, hold pharmacologic given likely procedure tomorrow Code. Full Disposition. Anticipated discharge is uncertain this time, anticipated length stay is greater than 48 hr for reasonable medical necessity including acute possible sinus pause requiring pacemaker placement emergently.
[2018-08-12] MEDS ORDERED: PANTOPRAZOLE SODIUM 40 MG TAB PO SCH (21:00)
[2018-08-12] MEDS ORDERED: EZETIMIBE 10 MG TAB PO SCH (21:00)
[2018-08-12] MEDS ORDERED: ROSUVASTATIN CALCIUM 10 MG TAB PO SCH (21:00)
[2018-08-13] MEDS ORDERED: MULTIVITAMINS 1 EACH TAB PO SCH (09:00)
--- NOTE | 2018-08-13 09:49 | PDMN ---
Medical Necessity Medical necessity: MCG M510 Supraventricular Arrhythmias: 73 yo w/ n/v, fatigue , chest discomfort, possible sinus pause (20 sec as reported by device monitoring co) and sinus milagros in 40s, acute, cardiology consulted, pacer pads placed, monitor on tele, poss PPM placement. Pt w/ hypokalemia, IVF w/ K to cont. Hx TIA, CVA, OBS w/ CPAP, heart cath 02/2018. Anticipated discharge is uncertain this time, anticipated length stay is greater than 48 hr for reasonable medical necessity including acute possible sinus pause requiring pacemaker placement emergently.
--- NOTE | 2018-08-13 11:07 | PDCARPN ---
Cardiology Progress Note Chief Complaint: No cardiovascular complaints today. Memory of the event is not very good. Assessment/Plan: Assessment: Patient is a 73 y/o female with history of "palpitations", who was set up for [employer] monitor in the outpatient setting by my partner, Dr. Gato Zambrano, to determine if there was possible atrial fibrillation noted. Yesterday, the patient ate something suspect, and nausea with emesis was noted, and while this was being noted, the patient's [employer] monitor detected a pause. Duration of the pause was "6-20 seconds". Review of the data with a pause of noted. No symptoms were noted - NO SYNCOPE, no dizziness - with the event of note. Chest pressure/tightness has been noted, and angiography in the past without critical CAD noted. The patient has moderate dementia (MRI with lancunar infarcts noted in the past (2014). No syncope has been noted for the patient (in general). Plan: (1) Given the [employer] data was noted in the midst of nausea and emesis AND no symptoms (syncope/dizziness/lightheadedness) were reported with the event, discussion about options was undertaken (2) Three options were discussed - PPM implant - given a lack of symptoms and an event around the event, would not pursue this option aggressively (at present) - [employer] monitor - this device was done, and did provide useful data, but there are limitations with this device, and times that the device can not be worn/used - LINQ implant - this device provides further arrhythmic data without limitations based on patient activities. At this point in time, would recommend placement of LINQ monitor. Risks and benefits of this device were discussed with patient and . Subjective: No cardiovascular complaints Reviewed/Discussed With: family, hospitalist Objective: Vital Signs (8 Hrs) Temp Pulse Resp BP Pulse Ox 08/13/18 06:54 37.1 C 66 17 112/80 95 08/13/18 04:35 36.7 C 51 L 16 95/65 L 96 Intake/Output (24 Hrs) 08/12/18 08/13/18 08/14/18 05:59 05:59 05:59 Intake Total 300 Balance 300 Intake: Oral (ml) 300 IV Intake (ml) 0 Other: Weight 57.9 kg Number of Voids Toilet 1 Result Diagrams: 08/12/18 15:55 08/13/18 03:58 Cardiac Labs: Cardiac Lab Results (72 Hrs) 08/13/18 03:58 Troponin I < 0.012 EKG: normal sinus rhythm Telemetry: normal sinus rhythm Questionable pause noted on [employer] monitor - there was a pause noted, it might have been during nausea/emesis event. There was no symptom associated with the pause that was reported. - Physical Exam Constitutional: WDWN, healthy appearing, no apparent distress Eyes: PERRL, EOMI Ears, Nose, Mouth, Throat: moist mucous membranes Cardiovascular: regular rate and rhythm, no murmurs, pulses symmetric bilat, No jugular vein distention Peripheral Pulses: 2+: dorsalis-pedis (R), dorsalis-pedis (L) Respiratory: clear to auscultate bilat, no crackles, no wheezes Gastrointestinal: normoactive bowel sounds Skin: no edema Musculoskeletal: no muscular tenderness Neurologic: AAOx3, CN II-XII grossly intact Psychiatric: cooperative, interactive, following commands ICD10 Worksheet Patient Problems: Problems Problem Status Onset Bradycardia Acute
[2018-08-13] MEDS ORDERED: LIDOCAINE 1% 300 MG/30 ML SDV SC ONE (11:48)
--- NOTE | 2018-08-13 12:28 | SUROPNOTE ---
[facility] Operative Report - Surgery LOOP RECORDER IMPLANT Device implanted: LINQ Date of implant: 08-13-18 Indication for implant: Questionable pause on Preventice (no symptoms) and ongoing desire to rule out pAF Details of procedure: After consent was obtained, the patient was placed on the table in the usual sterile fashion. The patient was prepped and draped with exposure to the left sternal region. Lidocaine was used for local anesthetic. A small incision was made with a #11 blade. The provided blade was then used to facilitate appropriate width and breath. The rail delivery system was then inserted into the small incision. This rail system was then inverted to allow elevation for the device insertion. The device was implanted without difficulty. The rail delivery system was then removed. The pocket was inspected to ensure all of the device was securely inside the pocket. Bessie were used to close the incision. SN: [id number] There were no complications appreciated in this procedure. The device was interrogated to ensure adequate wave forms noted. Outpatient follow up with cardiology was scheduled.
[2018-08-13 15:12] VITALS: BP 140/74
--- NOTE | 2018-08-13 15:59 | ASDISCHSUM ---
Discharge Information Plan Status:Home with No Needs Medically Cleared to Leave:08/13/2018 Discharge Date:08/13/2018 CM D/C Disposition:Home, Routine, Self-Care ADT D/C Disposition:Home, Routine, Self-Care Projected Discharge Date:08/13/2018 Transportation at D/C: Discharge Delay Reason: Follow-Up Date:08/13/2018 Discharge Slot: Final Diagnosis: Placement Information Patient Contact Information Contact Name:CHARLETTE Relationship: Address:[address] City:[place] Alternate Phone: [facility]/Zip Code:[place] [address] Email: Financial Information Financial Class:Medicare Primary Plan Desc:MEDICARE INPATIENT Primary Plan Number:[id number] Secondary Plan Desc:MARK/KERRI SUPPLEMENT Secondary Plan Number:[id number] Assessment Information LACE LACE Length of stay for Answers: Less than 1 day current admission Acuity / Level of Answers: Yes Care: Did the patient have an inpatient admission? Comorbidities - select Answers: Cerebrovascular disease all that apply (CVA, TIA, aneurysms, vasc ular dementia) Other Notes: HTN; HLD # of Emergency department Answers: 1-2 visits in the last 6 months Score: 6 Date Signed: 08/13/2018 03:58 PM Electronically Signed By:Caty Roche RN Intervention Information
--- NOTE | 2018-08-13 16:03 | GDS ---
ALL DIAGNOSES: 1. Pause seen on Preventice monitor. 2. History of coronary artery disease. 3. History of a cerebrovascular accident. 4. Hypokalemia. 5. Obstructive sleep apnea on continuous positive airway pressure. 6. Hyperlipidemia. HOSPITAL COURSE: This is a 73-year-old female who had had a Preventice monitor placed apparently [employer] shaun for atrial fibrillation. She was called by the company and told to report to the emergency depa rtment due to a 20-second pause. She had had an episode of emesis last night. She denies any syncop e. She appears to be a reasonable historian; however, there has been question of moderate dementia i n the chart. Cardiology was consulted. Given her lack of syncopal episode associated with this, con sideration was given to pacemaker, though recommendation was made towards a LINQ monitor. This has b een placed by Dr. Chin. She is comfortable with this plan. She will continue her other medication s without change other than holding her aspirin and Plavix until her dose which is due tomorrow night . I have discussed this with her and put this in her instructions. She is otherwise discharged home in stable condition. She recovered sooner than would be expected given the initial concern for need ing a pacemaker. BILLING: I spent more than 30 minutes on the day of discharge coordinating care. /[id number]/MODL
== END 2018-08-13 16:27 | disposition home or self-care (01) | DRG 262 ==
LOC: F2W 18:25
PROVIDERS: ADMIT Internal Medicine; ATTEND Internal Medicine
PROC: 0JH632Z Insertion of Monitoring Device into Chest Subcutaneous Tissue and Fascia, Percutaneous Approach (ICD-10-PCS; principal; 2018-08-12)
DX: R00.0 Tachycardia, unspecified (principal); T62.91XA Toxic effect of unspecified noxious substance eaten as food, accidental (unintentional), initial encounter; E87.6 Hypokalemia; Z86.73 Personal history of transient ischemic attack (TIA), and cerebral infarction without residual deficits; Z79.01 Long term (current) use of anticoagulants; I25.10 Atherosclerotic heart disease of native coronary artery without angina pectoris; G47.33 Obstructive sleep apnea (adult) (pediatric); E78.5 Hyperlipidemia, unspecified
CPT/HCPCS: 82435-PO; 82565-PO; 82947-PO; 84132-PO; 84295-PO; 84484-PO; 84520-PO; 85014-PO; 96374; 97165-GO; C1764; G8987-GO-CI; G8988-GO-CI; G8989-GO-CI; J2405; J3475; J3480

== ENCOUNTER 2018-10-04 12:23 | Observation (INO) | payer OTHER, MEDICARE ==
[2018-10-04] MEDS ORDERED: diphenhydrAMINE 25 MG CAP PO ONE (12:27)
[2018-10-04] MEDS ORDERED: DIAZEPAM 5 MG TAB PO ONE (12:27)
[2018-10-04] MEDS ORDERED: BACITRACIN IRRIGATION/NS 50,000 UNITS/1,000 ML BTL IRR ONE (12:27)
[2018-10-04] MEDS ORDERED: NS 1,000 ML IV ONE (12:27)
[2018-10-04] MEDS ORDERED: ceFAZolin 2 GM/DEXTROSE 100 ML IV ONE (12:52)
[2018-10-04 13:03] LABS: PLATELET COUNT 236 10^3/uL (150-400)
[2018-10-04 13:13] LABS: INR 0.99 (0.83-1.16); PROTIME(PATIENT) 13.3 SEC (12.0-15.0)
--- NOTE | 2018-10-04 16:16 | PDPROPOC ---
Sedation Plan of Care Sedation Plan of Care: vital signs stable, mental status noted, patient educated of risks, benefits, alternatives, patient can tolerate sedation ASA Classification: ASA 3 Planned drugs: fentanyl, midazolam Mallampati Score: Class 2 Mallampati Reference Image: Patient passed 3-3-2 rule?: Yes
--- NOTE | 2018-10-04 16:16 | PDHPUP ---
History & Physical Update H&P update statement: This history and physical update is based on an assessment of the patient which was completed after admission or registration (within 24 hours), but prior to the surgery/procedure. H&P update: H&P reviewed & patient examined, changes noted H&P changes: patient with 22 second pause on loop recorder...
[2018-10-04] MEDS ORDERED: fentaNYL 100 MCG/2 ML INJ ONE (16:26)
[2018-10-04] MEDS ORDERED: LIDOCAINE 1% 300 MG/30 ML SDV ONE (16:26)
[2018-10-04] MEDS ORDERED: IOPAMIDOL (ISOVUE-300) 50 ML VIAL ONE (16:26)
[2018-10-04] MEDS ORDERED: LIDO/EPI 1% **for epidural** 30 ML SDV ONE (16:26)
[2018-10-04] MEDS ORDERED: MIDAZOLAM 2 MG/2 ML VIAL ONE (16:26)
[2018-10-04] MEDS ORDERED: BUPIVACAINE 0.5% 30 ML SDV ONE (16:26)
--- NOTE | 2018-10-04 16:35 | CPEKG ---
Test Reason : OPEN Blood Pressure : / mmHG Vent. Rate : 061 BPM Atrial Rate : 064 BPM P-R Int : 177 ms QRS Dur : 090 ms QT Int : 424 ms P-R-T Axes : 084 072 020 degrees QTc Int : 427 ms Sinus arrhythmia Anteroseptal infarct, old Confirmed by Benji Harden ([id number]) on 10/04/2018 4:35:10 PM Referred By: Confirmed By:Benji Harden
[2018-10-04] MEDS ORDERED: ETOMIDATE 40 MG/20 ML INJ ONE (17:18)
[2018-10-04] MEDS ORDERED: CARBOXYMETHYLCELLULOSE 1% 0.4 ML DROPERETTE EACHEYE PRN (18:14)
[2018-10-04] MEDS: ACETAMINOPHEN 325 MG TAB PO PRN (20:14)
[2018-10-04] MEDS ORDERED: METOPROLOL TARTRATE 25 MG TAB PO SCH (21:00)
[2018-10-04] MEDS ORDERED: MULTIVITAMINS 1 EACH TAB PO SCH (21:00)
[2018-10-04] MEDS ORDERED: EZETIMIBE 10 MG TAB PO SCH (21:00)
[2018-10-04] MEDS ORDERED: ROSUVASTATIN CALCIUM 10 MG TAB PO SCH (21:00)
[2018-10-04] MEDS ORDERED: PANTOPRAZOLE SODIUM 40 MG TAB PO SCH (21:00)
[2018-10-05] MEDS: ACETAMINOPHEN 325 MG TAB PO PRN ×2 (04:48→10:43)
--- NOTE | 2018-10-05 05:24 | CPIP ---
DATE OF PROCEDURE: 10/04/2018 PROCEDURE: 1. Magnetic resonance imaging conditional pacemaker insertion. The device is a Realitycheckronik Edora 8 DR -T, model #655958, serial #[id number]. The ventricular lead is a Biotronik Solia S 53, serial #[id number]. The atrial lead is a Solia S 45, serial #[id number]. Again, this is a magnetic resonance imaging c onditional device. 2. Explant of loop recorder. COMPLICATIONS: None. INDICATION FOR THE PROCEDURE/APPROPRIATE USE CRITERIA: The patient has had intermittent lightheadedn ess and dizziness for several months and ultimately had a loop recorder placed. On this morning's in [facility], a warning was given for a 22-second asystolic sinus arrest and pause. The patient was a sleep and just getting up. So, she was relatively asymptomatic, but did experience lightheadedness u devan arising. She was brought emergently to the hospital for a pacemaker insertion. PROCEDURE IN DETAIL: After informed consent was obtained, n.p.o. status was confirmed, the region of the left subclavicular fossa was cleaned, prepped, and draped in sterile fashion. Approximately 15 cc of 1% lidocaine was utilized for local anesthesia. Approximately 4 cc was used over the loop gokul rder. The skin over the loop recorder was sharply incised with a #10 blade, and the device was removed with curved hemostats, and the loop recorder was taken off the table. The skin for the pacer pocket incision was then sharply incised with the same #10 blade, and electroc autery and local pressure were used for hemostasis. Sharp and blunt dissection was used to perform a pacer pocket overlying the pectoralis major fascia. Electrocautery and local pressure were used for hemostasis. An antibiotic-soaked gauze was placed in the pocket. An 18-gauge Cook needle was used to gain access to the left axillary vein with 2 independent punctures, and the J wires were advanced into the inferior vena cava under direct fluoroscopic guidance. A 7-[place] peel-away sheath was adva nced over the lateral wire, and the ventricular lead was then manipulated with care into the RV apex and screwed into place. It was tested and found to have a threshold of 0.6 V at 0.4 msec, sensing R- wave amplitude 10.10 mV with a lead impedance during pacing of 624. The peel-away sheath was removed , and the lead was sutured into place with 0 Ethibond. The medial wire was then used to advance the second 6-[place] peel-away sheath. The atrial lead was manipulated with care into the right atrial ap pendage. A set screw was applied into the muscle of the atrium, and the threshold was tested. P-wav e amplitude was measured at 1.4 mV, and the threshold was noted to be 1.2 V at 0.4 msec with a fairly good current of injury on the analyzer prior to hooking the device up to the pulse generator. The p eel-away sheath was removed, and the lead was sutured into place with 0 Ethibond. Hemostasis was doc umented. The antibiotic-soaked gauze was removed from the pocket. Copious amounts of antibiotic-containing so lution were used to irrigate the pocket, and the pocket was noted to be clean and dry. The pulse gen erator was brought to the table. The ventricular serial number was checked and placed in the lower p ole lead housing and the set screw firmly applied. This procedure was repeated for the atrial lead a nd the set screw firmly applied again on the upper pole lead housing. The device was then sutured in to place with 0 silk, and the skin was closed with 3 layers, 2-0 and 3-0 Vicryl followed by 4-0 Monoc ryl subcuticular stitch. Excellent wound edge apposition and hemostasis were documented. The counts for needles and gauze were documented to be appropriate and accounted for prior to closure. The skin overlying the loop recorder was stapled to help close the loop recorder tract where it previ ously was located. The patient tolerated the procedure well and returned to the postcath recovery unit in good and stabl e condition, where a stat postoperative chest x-ray and EKG will be obtained. FINAL IMPRESSION: Successful dual-chamber pacemaker insertion for indication of sinus arrest and asy stole in a patient with lightheadedness and dizziness as clinical symptoms. /[id number]/MODL
[2018-10-05 05:32] LABS: PLATELET COUNT 213 10^3/uL (150-400)
--- NOTE | 2018-10-05 07:42 | CPEKG ---
Test Reason : OPEN Blood Pressure : / mmHG Vent. Rate : 060 BPM Atrial Rate : 060 BPM P-R Int : 176 ms QRS Dur : 096 ms QT Int : 427 ms P-R-T Axes : 071 078 029 degrees QTc Int : 427 ms Atrial-paced rhythm Low voltage, extremity leads Consider Anteroseptal infarct, old Confirmed by Benji Harden ([id number]) on 10/05/2018 7:41:52 AM Referred By: Confirmed By:Benji Harden
[2018-10-05 08:47] VITALS: BP 106/68
--- NOTE | 2018-10-05 08:58 | CPEKG ---
Test Reason : OPEN Blood Pressure : / mmHG Vent. Rate : 060 BPM Atrial Rate : 060 BPM P-R Int : 179 ms QRS Dur : 094 ms QT Int : 423 ms P-R-T Axes : 061 075 025 degrees QTc Int : 423 ms Atrial-paced rhythm Low voltage, extremity and precordial leads Probable anteroseptal infarct, old Confirmed by Benji Harden ([id number]) on 10/05/2018 8:58:21 AM Referred By: Confirmed By:Benji Harden
--- NOTE | 2018-10-05 09:52 | ASMTLACE ---
LACE Length of stay for Answers: Less than 1 day current admission Acuity / Level of Answers: No Care: Did the patient have an inpatient admission? Comorbidities - select Answers: Cerebrovascular disease all that apply (CVA, TIA, aneurysms, vasc ular dementia) Other Notes: HTN # of Emergency department Answers: 1-2 visits in the last 6 months Score: 3 Date Signed: 10/05/2018 09:51 AM Electronically Signed By:JOSUÉ Grande
--- NOTE | 2018-10-05 09:55 | ASDISCHSUM ---
Discharge Information Plan Status:Home with No Needs Medically Cleared to Leave:10/04/2018 Discharge Date:10/04/2018 CM D/C Disposition:Home, Routine, Self-Care ADT D/C Disposition:Home, Routine, Self-Care Projected Discharge Date:10/04/2018 Transportation at D/C:Family Discharge Delay Reason: Follow-Up Date:10/04/2018 Discharge Slot: Final Diagnosis: Placement Information Patient Contact Information Contact Name:CHARLETTE Relationship: Address:[address] City:[place] Alternate Phone: State/Zip Code:[place] [address] Email: Financial Information Financial Class:Medicare Primary Plan Desc:MEDICARE OUTPATIENT Primary Plan Number:[id number] Secondary Plan Desc:MARK/KERRI SUPPLEMENT Secondary Plan Number:[id number] Assessment Information LACE LACE Length of stay for Answers: Less than 1 day current admission Acuity / Level of Answers: No Care: Did the patient have an inpatient admission? Comorbidities - select Answers: Cerebrovascular disease all that apply (CVA, TIA, aneurysms, vasc ular dementia) Other Notes: HTN # of Emergency department Answers: 1-2 visits in the last 6 months Score: 3 Date Signed: 10/05/2018 09:51 AM Electronically Signed By:JOSUÉ Grande Case Management Discharge Plan Note Case Management Discharge Discharge Order Complete? Answers: Yes Patient to Obtain Answers: via Family Medications Transportation Arranged Answers: Family/Friends Discharge Comments Notes: Pt is s/p a planned pacemaker placement. She Is discharging home today with family and no CM needs. Date Signed: 10/05/2018 09:53 AM Electronically Signed By:JOSUÉ Grande Intervention Information
--- NOTE | 2018-10-05 13:57 | GDS ---
DISCHARGE DIAGNOSIS: Asystolic sinus arrest and pauses of up to 22 seconds, status post dual-chamber Biotronik pacemaker. HOSPITAL COURSE: For detailed H and P, please see prior dictation. Briefly, the patient is a 73-yea r-old female who initially presented to our office complaining of intermittent lightheadedness and di zziness. She ultimately had a loop recorder placed, and the morning of admission, she was found to h ave a 22-second asystolic sinus arrest and pause. She was asleep at the time of the event. She was brought urgently to the cardiac catheterization laboratory, where she had a dual chamber Biotronik pa cemaker placed by Dr. Amanuel Jackson on October 04, 2018. The procedure was uncomplicated. The morning, the patient complained of some mild tenderness over the pacemaker site. She denied any significant chest pressure or shortness of breath. Her device was interrogated the following mornin g and working properly. She had a chest x-ray the day of discharge, which was negative for pneumotho rax. She was monitored on telemetry and was intermittently paced. PHYSICAL EXAMINATION: GENERAL: Patient appears in no acute distress. VITALS: Blood pressure 106/6 8, heart rate 64, oxygen saturation of 95% on room air. Afebrile. LUNGS: Clear to auscultation. N o wheezes, rhonchi, or crackles auscultated. CARDIAC: Regular rate and rhythm. CHEST WALL: Her pa cer site is clean and intact, without any evidence of infection or hematoma. She has a slight rednes s just below the bandage, which is most consistent with bruising as opposed to infection. DISCHARGE MEDICATIONS: Aspirin 81 mg daily, Plavix 75 mg daily, Zetia 10 mg at bedtime, Crestor 10 m g at bedtime, Tylenol 325 mg 2 tabs p.r.n., omeprazole 20 mg at bedtime, Lopressor 25 mg at bedtime, multivitamin daily, refresh eye drops p.r.n. PLAN: The patient is currently stable and ready for discharge home. She has been given pacer precau tions. She is scheduled for a wound check and pacer interrogation on October 16 at 3:00 at [facility]. She is also scheduled to follow up with Dr. Rahat Zambrano on November 01 at 1:15 at our [facility] office. If she has any progressive redness at the site of her pacer, she is aware to contact our office immediately. Greater than 30 minutes was spent coordinating the patient's care today. /[id number]/MODL
== END 2018-10-05 12:03 | disposition home or self-care (01) ==
LOC: FCATH 12:23 → F2W 17:46
PROVIDERS: ADMIT Internal Medicine Cardiovascular Disease; ATTEND Internal Medicine Cardiovascular Disease
DX: I45.5 Other specified heart block (principal); I49.5 Sick sinus syndrome; Z45.09 Encounter for adjustment and management of other cardiac device; R42 Dizziness and giddiness
CPT/HCPCS: 33208; 33284; 71045; 71046; 93005; C1785; C1898; J0690; J2250; J3010; Q9967

== ENCOUNTER → 2019-03-25 | Outpatient (CLI) | payer OTHER, MEDICARE | LOC: BRMIMAGING 08:52 | PROVIDERS: ATTEND Internal Medicine | DX: N64.4 Mastodynia (principal); Z95.0 Presence of cardiac pacemaker | CPT/HCPCS: 76641-PO ==